=== PATIENT | female | born 1950 | race Caucasian/White ===

== ENCOUNTER 2023-12-28 12:02 | Day surgery (SDC) | payer OTHER ==
[2023-12-28] MEDS: DENOSUMAB 60 MG/ML DISP.SYRIN SQ ONE (12:16)
[2023-12-28 12:20] VITALS: BP 149/75; PULSE 96; RESP 16; TEMP 98.8
== END 2023-12-28 12:24 | disposition home or self-care (01) ==
LOC: FINJECTION 12:02 → FM/S 12:05 → FINJECTION 12:24
PROVIDERS: ATTEND Internal Medicine Endocrinology, Diabetes & Metabolism
PROC: 3E013GC Introduction of Other Therapeutic Substance into Subcutaneous Tissue, Percutaneous Approach (ICD-10-PCS; principal; 2023-12-28)
DX: M81.0 Age-related osteoporosis without current pathological fracture (principal)
CPT/HCPCS: 96372; J0897

== ENCOUNTER 2024-06-26 12:15 | Day surgery (SDC) | payer OTHER ==
[2024-06-26 12:29] VITALS: BP 147/70; PULSE 62; RESP 18; TEMP 98.1
[2024-06-26] MEDS: DENOSUMAB 60 MG/ML DISP.SYRIN SQ ONE (12:43)
== END 2024-06-26 12:44 | disposition home or self-care (01) ==
LOC: FINJECTION 12:15 → FM/S 12:17 → FINJECTION 12:44
PROVIDERS: ATTEND Internal Medicine Endocrinology, Diabetes & Metabolism
PROC: 3E013GC Introduction of Other Therapeutic Substance into Subcutaneous Tissue, Percutaneous Approach (ICD-10-PCS; principal; 2024-06-26)
DX: M81.0 Age-related osteoporosis without current pathological fracture (principal); I10 Essential (primary) hypertension; E78.5 Hyperlipidemia, unspecified
CPT/HCPCS: 96372; J0897